=== PATIENT | female | born 1985 ===

== ENCOUNTER 2019-01-12 09:38 | Day surgery (SDC) | payer BC ==
[2019-01-12] VITALS (7 sets, daily range): BP systolic 98–115; BP diastolic 60–74
[~2019-01-12] VITALS: Ht 157.5 cm; Wt 45.4 kg
--- NOTE | 2019-01-12 10:25 | Anethesia Preoperative Eval ---
Anesthesia Pre-op PMH/ROS General Date of Evaluation: Jan 12, 2019 Time of Evaluation: 10:28 Anesthesiologist: Idalia Christianson CRNA ASA Score: ASA 1 Mallampati Score Class I : Soft palate, uvula, fauces, pillars visible Class II: Soft palate, uvula, fauces visible Class III: Soft palate, base of uvula visible Class IV: Only hard plate visible Mallampati Classification: Class I Surgeon: Trevon Diagnosis: RIGHT foot painful hardware Surgical Procedure: RIGHT foot hardware removal Anesthesia History: none Family History: no anesthesia problems Medications: see eMAR Patient NPO?: Yes NPO Date: Jan 12, 2019 NPO Time: 00:00 Past Medical History Cardiovascular: Denies: HTN, CAD, [place], valve dz, arrhythmia, other Pulmonary: Reports: other - allergic rhinitis; Denies: asthma, COPD, [place] Gastrointestinal/Genitourinary: Denies: GERD, CRI, ESRD, other Neurologic/Psychiatric: Denies: dementia, CVA, depression/anxiety, TIA, other Endocrine: Denies: DM, hypothyroidism, steroids, other HEENT: Denies: cataract (L), cataract (R), glaucoma, [place] (L), [place] (R), other Hematology/Immune: Denies: anemia, DVT, bleeding disorder, other Musculoskeletal/Integumentary: Reports: other - RIGHT bunion s/p bunionectomy; Denies: OA, RA, DJD, DDD, edema PMH Narrative: as above PSxH Narrative: bunionectomy, breast implant Anesthesia Pre-op Phys. Exam Physician Exam Vital Sign - Last 24 Hours 01/12/19 01/12/19 10:22 10:34 Temp 97.1 Pulse 52 Resp 18 B/P (MAP) 104/74 Pulse Ox 100 O2 Delivery Room Air Room Air Constitutional: NAD Neurologic: CN 2-12 intact Cardiovascular: RRR Respiratory: CTA Airway Exam Mallampati Score: Class I MO: full Neck: FROM TMD: > 3 FB ROM: full Teeth: intact Dentures: no upper, no lower Anesthesia Pre-op A/P Labs Serum Test HCG (-) Risk Assessment & Plan Assessment: ASA 1 ok to proceed Plan: MAC Status Change Before Surgery: No Pre-Antibiotics Given Within 1 Hr of Incision: Idalia Kimbrough CRNA Jan 12, 2019 10:25
[2019-01-12] MEDS ORDERED: Dexamethasone 20mg/5ml ONE (10:26)
[2019-01-12] MEDS ORDERED: Betadine 10% Oint 30gm TOPIC ONE (10:26)
[2019-01-12] MEDS ORDERED: Lidocaine 1% Plain 30 ml INJ ONE (10:26)
[2019-01-12] MEDS ORDERED: Bacitracin Oint 15gm Tube TOPIC ONE (10:26)
[2019-01-12] MEDS ORDERED: Bupivacaine 0.5% Inj 30 ml vial INJ ONE (10:26)
[2019-01-12] MEDS ORDERED: fentaNYL 100 mcg/2 mL IV ONE (10:29)
[2019-01-12] MEDS ORDERED: Midazolam 2mg/2ml Inj ONE (10:29)
[2019-01-12] MEDS ORDERED: Propofol 200mg/20ml IV ONE ×2 (10:30→12:34)
[2019-01-12] MEDS ORDERED: ALLEGRA ALLERGY60 M1 PO (10:34)
[2019-01-12] MEDS ORDERED: Sterile Water Irrig 1000ml IRRIG ONE (11:00)
[2019-01-12] MEDS ORDERED: LR 1000ml ONE (11:00)
[2019-01-12] MEDS ORDERED: NS Irrig 1000ml ONE (11:00)
[2019-01-12] MEDS ORDERED: Ketorolac 30mg Inj ONE (11:00)
--- NOTE | 2019-01-12 11:16 | Pre-Procedure Note/Attestation ---
Pre-Procedure Note/Attestation Complete Prior to Procedure Planned Procedure: right Procedure Narrative: Removal of screw right foot Indications for Procedure Pre-Operative Diagnosis: Painful hardware right foot Attestation I attest that I discussed the nature of the procedure; its benefits; risks and complications; and alternatives (and the risks and benefits of such alternatives ), prior to the procedure, with the patient (or the patient's legal sales representative graphic art). I attest that, if there was a reasonable possibility of needing a blood transfusion, the patient (or the patient's legal sales representative graphic art) was given the [facility] standardized written summary, pursuant to the Daniel Stew Blood Safety Act ([place] Health and Safety Code # 1645, as amended). I attest that I re-evaluated the patient just prior to the surgery and that there has been no change in the patient's H&P, except as documented below: Mingo Lester DPM Jan 12, 2019 11:16
--- NOTE | 2019-01-12 13:20 | Brief Operative Note ---
Immediate Post Operative Note Operative Note Pre-op Diagnosis: Painful hardware right foot Procedure: failed attempt to remove hardware Post-op Diagnosis: same as pre-op Surgeon: Trevon Anesthesia: MAC Specimen: none Complications: none Condition: stable Fluids: 100 Estimated Blood Loss: none Drains: none Implant(s) used?: No Mingo Lester DPM Jan 12, 2019 13:19
--- NOTE | 2019-01-12 13:28 | Immediate Post-Op Evaluation ---
Immediate Post-Op Evalulation Immediate Post-Op Evalulation Procedure: RIGHT foot hardware removal attempted Date of Evaluation: Jan 12, 2019 Time of Evaluation: 13:20 IV Fluids: LR 400 ml Blood Pressure Systolic: 100 Blood Pressure Diastolic: 64 Pulse Rate: 52 Respiratory Rate: 20 O2 Sat by Pulse Oximetry: 98 Temperature (Fahrenheit): 98.7 Pain Score (1-10): 0 Nausea: No Vomiting: No Complications none Patient Status: reacts, patent Hydration Status: adequate Drug: cefazolin 1 gm Given Within 1 Hr of Incision: Yes Time Given: 11:25 Idalia Christianson CRNA Jan 12, 2019 13:28
--- NOTE | 2019-01-12 13:30 | 48 Hour Post Anesthesia Eval ---
Post Anesthesia Evaluation Procedure: RIGHT foot hardware removal attempted Date of Evaluation: Jan 12, 2019 Time of Evaluation: 13:28 Blood Pressure Systolic: 98 0: 60 Pulse Rate: 47 Respiratory Rate: 20 Temperature (Fahrenheit): 97.8 O2 Sat by Pulse Oximetry: 98 Airway: patent Nausea: No Vomiting: No Pain Intensity: 0 Hydration Status: adequate Cardiopulmonary Status: stable Mental Status/LOC: patient returned to baseline Follow-up Care/Observations: per podiatry Post-Anesthesia Complications: none Follow-up care needed: ready to discharge Idalia Christianson CRNA Jan 12, 2019 13:30
[2019-01-12] MEDS ORDERED: Norco 5mg/325mg tab ONE (14:23)
[2019-01-12] MEDS ORDERED: Norco 5mg/325mg tab ORAL ONE (14:30)
--- NOTE | 2019-01-12 20:00 | History and Physical Report ---
DATE OF ADMISSION: 01/12/2019 PODIATRIC HISTORY AND PHYSICAL HISTORY OF PRESENT ILLNESS: This is a 33-year-old female that is admitted today for an outpatient procedure of her right foot. The patient had been complaining of retained screw from prior bunionectomy, which was performed last year and she indicated that the screw was misplaced and is causing pain and discomfort while wearing shoe-gear. The patient underwent minimal incision type of bunionectomy to her right foot in March 2018 and the healing process was uneventful. She is concerned about the protrusion of the screw and would like to have the removal of the hardware. The patient was consulted on surgery and was admitted today for the removal of the hardware. PAST MEDICAL HISTORY: Unremarkable. MEDICATIONS: None. ALLERGIES: No known drug allergies. PODIATRIC PHYSICAL EXAMINATION: VASCULAR STATUS: The dorsalis pedis and posterior tibial arteries are equally strong measuring 3/4 bilaterally. The capillary filling time is less than 3 seconds to all digits bilaterally. Skin temperature is warm. Homans sign is negative. NEUROLOGICAL: Intact reflexes, Achilles and patellar measuring 2/4 bilaterally. Sensation, proprioception, and vibration are all intact in bilateral lower extremities. Babinski is negative. Clonus is absent bilaterally. MUSCULOSKELETAL: Proper alignment of the right hallux, status post bunionectomy. There is hallux abductovalgus with bunion deformity on the left foot. The lesser digits are normal without any deformities. Range of motions of all joints are full and without crepitation or pain bilaterally. Palpable protruding screw is noted over the medial aspect of the right foot at the level of the first metatarsal shaft proximally. DERMATOLOGICAL: Small scar from minimal incision surgery on the right foot. No other lesions or ulcerations are noted bilaterally. All nails are present and healthy bilaterally. RADIOGRAPHIC EXAMINATION: Evidence of a chevron type osteotomy with capital transposition of the head of the first metatarsal on the right foot. The bone had healed from the bunionectomy and an evidence of screw, which is driven from proximal medial to distal lateral is noted from the midshaft of the first metatarsal extending to the head of the first metatarsal. No other hardware is present. ASSESSMENT: Painful screw, status post bunionectomy, right foot. PLAN: The patient is admitted today for an outpatient surgery in order to remove the painful screw from her right foot. Risks, complications, and alternatives discussed with the patient. Postoperative medications were dispensed to the patient. The patient elected to proceed with surgery. Mingo Lester D.P.M. DR: JOSEMANUEL JOB#: [id number] CC:
--- NOTE | 2019-01-12 20:45 | Operative Note - Dictated ---
DATE OF OPERATION: 01/12/2019 NOTE: INCOMPLETE DICTATION SURGEON: Mingo Lester DPM. ANESTHESIOLOGIST: Mingo Lester D.P.M. DR: MAIDA JOB#: [id number] CC:
--- NOTE | 2019-01-12 22:30 | Operative Note - Dictated ---
DATE OF OPERATION: 01/12/2019 SURGEON: Mingo Lester D.P.M. ANESTHESIOLOGIST: Idalia Christianson CRNA ANESTHESIA: Local standby. PREOPERATIVE DIAGNOSIS: Painful hardware, right foot. POSTOPERATIVE DIAGNOSIS: Painful hardware, right foot. PROCEDURE PERFORMED: Failed attempt to removal of screw, right foot. DESCRIPTION OF THE OPERATION: The patient was brought to the operating room and was placed on the operating room table in the supine position. IV sedation was administered by the anesthesiologist. Local anesthesia consisting of 0.5% Marcaine plain, total of 10 mL was administered to the right foot. An ankle tourniquet was applied to the right lower extremity. The foot was prepped and draped in the usual sterile manner. An Esmarch bandage was utilized to exsanguinate the blood and the right ankle tourniquet was inflated to 250 mmHg. Attention was directed to the right foot where an approximately 1.5 cm linear incision was centered over a protruding screw at the level of the medial aspect of the first metatarsal midshaft. The incision was deepened with care being taken to cauterize and ligate all bleeders. The soft tissue was reflected and the screw was exposed. At this point, multiple screwdrivers from a variety of hardware sets, which included the small and mini AO sets were utilized in an attempt to remove the screw and all attempts had failed. Other instrumentations including a straight Adwoa and mosquitoes were also utilized in an attempt to rotate the screw, which was buried deep into the first metatarsal all the way to the head. After the attempts were all failed, the wound was flushed utilizing sterile saline and it was decided to close the wounds when the surgery time was nearing almost 100 minutes. At this point, the skin was reapproximated utilizing 4-0 nylon in a simple interrupted type stitch. The wound was dressed utilizing an Adaptic 4 x 4 gauze and Coban. The right ankle tourniquet was deflated and vascular supply was noted to all digits of right foot. The patient tolerated the procedure well and left the operating room to recovery room with all vital signs stable. Mingo Lester D.P.M. DR: JANETT JOB#: [id number] CC: TIFFANY
== END 2019-01-12 15:10 | disposition home or self-care (01) ==
LOC: SUR 09:38
DX: T84.84XA Pain due to internal orthopedic prosthetic devices, implants and grafts, initial encounter (principal); Y83.8 Other surgical procedures as the cause of abnormal reaction of the patient, or of later complication, without mention of misadventure at the time of the procedure; Y92.89 Other specified places as the place of occurrence of the external cause; J30.9 Allergic rhinitis, unspecified
CPT/HCPCS: 20680; 81025; J0690; J1885; J2250; J2704; J3010; J3490; 94003; 94150